=== PATIENT | male | born 1960 | race Caucasian/White ===

== ENCOUNTER 2021-08-15 10:12 | Observation (INO) | payer BC ==
--- NOTE | 2021-08-15 10:37 | ED ---
General Adult HPI - General Chief complaint: Neuro Symptoms/Deficit Stated complaint: Visual changes Time Seen by Provider: 08/15/21 10:21 Source: patient, RN notes reviewed Mode of arrival: ambulatory Limitations: no limitations - History of Present Illness Initial comments: Patient is a pleasant 61-year-old male presenting to the emergency department with concerns for visual changes. Onset of symptoms was around 45 minutes prior to arrival. Symptoms lasted around 15 minutes and then resolved. Patient remained symptom-free at this time. Patient did have blurry vision on the left visual field. Patient states this affected both eyes, more the left side. Patient did try shutting his eyes independently. Patient states there was a large blur on the left peripheral, less than one quarter of his vision. No eye pain. Patient did have some paresthesias of his left hand that have resolved. No hand or arm weakness. No confusion or speech problems. Patient does have history of TIA approximately 10 years ago with different symptoms. - Related Data Home Medications Medication Instructions Recorded Confirmed Enalapril [Vasotec] 10 mg PO HS 05/17/14 08/15/21 Metoprolol Tartrate [Lopressor] 37.5 mg PO BID 05/17/14 08/15/21 Rosuvastatin [Crestor] 10 mg PO HS 05/17/14 08/15/21 Ezetimibe [Zetia] 10 mg PO HS 08/15/21 08/15/21 Multivitamins, Thera [Multivitamin 1 tab PO HS 08/15/21 08/15/21 (formulary)] Allergies Allergy/AdvReac Type Severity Reaction Status Date / Time No Known Allergies Allergy Verified 08/15/21 11:31 Review of Systems ROS Statement: Those systems with pertinent positive or pertinent negative responses have been documented in the HPI. ROS Other: All systems not noted in ROS Statement are negative. Constitutional: Denies: fever Eyes: Reports: as per HPI, vision change. Denies: eye pain ENT: Denies: ear pain Respiratory: Denies: cough Cardiovascular: Denies: chest pain Endocrine: Denies: fatigue Gastrointestinal: Denies: abdominal pain Genitourinary: Denies: dysuria Musculoskeletal: Denies: back pain Skin: Denies: rash Neurological: Reports: as per HPI, paresthesias. Denies: weakness Past Medical History Past Medical History: CVA/TIA, Hyperlipidemia, Hypertension History of Any Multi-Drug Resistant Organisms: None Reported Additional Past Surgical History / Comment(s): COLONOSCOPY, ELIGIO Past Anesthesia/Blood Transfusion Reactions: No Reported Reaction Past Psychological History: No Psychological Hx Reported Smoking Status: Never smoker Past Alcohol Use History: Occasional Past Drug Use History: None Reported General Exam Limitations: no limitations General appearance: alert, in no apparent distress Head exam: Present: normocephalic Eye exam: Present: normal appearance, PERRL, EOMI, other (Funduscopic exam within normal limits bilaterally, nondilated exam). Absent: nystagmus Expanded Eyelids: Normal Inspection: Bilateral Pupils: Regular, Round: Bilateral Sclera/Conjunctival: Normal Inspection: Bilateral ENT exam: Present: normal oropharynx Neck exam: Present: normal inspection Respiratory exam: Present: normal lung sounds bilaterally Cardiovascular Exam: Present: regular rate, normal rhythm GI/Abdominal exam: Present: soft. Absent: tenderness Extremities exam: Present: normal inspection Neurological exam: Present: alert, oriented X3, CN II-XII intact. Absent: motor sensory deficit Expanded Neurological exam: Present: protecting the airway Patient oriented to: Present: person, place, time Speech: Present: fluid speech Cranial nerves: EOM's Intact: Normal, Facial Sensation: Normal Sensory exam: Upper Extremity Light Touch: Normal, Lower Extremity Light Touch: Normal Motor strength exam: RUE: 5, LUE: 5, RLE: 5, LLE: 5 Eye Response: (4) open spontaneously Motor Response: (6) obeys commands Verbal Response: (5) oriented Psychiatric exam: Present: normal affect, normal mood Skin exam: Present: normal color Course Vital Signs 08/15/21 08/15/21 08/15/21 10:14 10:30 11:00 Temperature 98 F Pulse Rate 65 61 59 L Respiratory 18 18 18 Rate Blood Pressure 167/93 137/92 135/88 O2 Sat by Pulse 100 98 95 Oximetry 08/15/21 08/15/21 11:15 11:30 Temperature Pulse Rate 56 L 55 L Respiratory 18 18 Rate Blood Pressure 125/79 117/75 O2 Sat by Pulse 97 97 Oximetry - Reevaluation(s) Reevaluation #1: 08/15/21 10:36 Ophthalmology has been paged 08/15/21 10:44 Case was discussed with Dr. Faustin who agrees with neurological workup. He would like to follow-up with the patient within 1 week in the office. Patient updated. EKG Findings - EKG Comments: EKG Findings:: Sinus bradycardia with rate of 58. SC 158. QRS 84. QT 418. QTC 410. Normal axis. Normal QRS. No acute ST change. Medical Decision Making - Medical Decision Making Patient reevaluated and remained symptom-free. Patient updated on results and plan. Case was discussed with Dr. De Leon, who will admit his patient with neurology evaluation. Patient was specifically notified of need for follow-up with ophthalmology within the week. - Lab Data Result diagrams: 08/15/21 10:50 08/15/21 10:50 Lab Results 08/15/21 08/15/21 08/15/21 Range/Units 10:50 10:50 10:50 WBC 7.1 (3.8-10.6) k/uL RBC 5.14 (4.30-5.90) m/uL Hgb 17.1 (13.0-17.5) gm/dL Hct 50.1 (39.0-53.0) % MCV 97.5 (80.0-100.0) fL MCH 33.2 (25.0-35.0) pg MCHC 34.1 (31.0-37.0) g/dL RDW 13.3 (11.5-15.5) % Plt Count 189 (150-450) k/uL MPV 10.8 Neutrophils % 59 % Lymphocytes % 27 % Monocytes % 9 % Eosinophils % 1 % Basophils % 1 % Neutrophils # 4.1 (1.3-7.7) k/uL Lymphocytes # 1.9 (1.0-4.8) k/uL Monocytes # 0.7 (0-1.0) k/uL Eosinophils # 0.1 (0-0.7) k/uL Basophils # 0.0 (0-0.2) k/uL PT 10.9 (9.0-12.0) sec INR 1.0 (<1.2) APTT 23.7 (22.0-30.0) sec Sodium 138 (137-145) mmol/L Potassium 4.5 (3.5-5.1) mmol/L Chloride 102 (98-107) mmol/L Carbon Dioxide 26 (22-30) mmol/L Anion Gap 10 mmol/L BUN 20 (9-20) mg/dL Creatinine 0.89 (0.66-1.25) mg/dL Est GFR (CKD-EPI)AfAm >90 (>60 ml/min/1.73 sqM) Est GFR (CKD-EPI)NonAf >90 (>60 ml/min/1.73 sqM) Glucose 94 (74-99) mg/dL Calcium 9.7 (8.4-10.2) mg/dL Total Bilirubin 1.0 (0.2-1.3) mg/dL AST 39 (17-59) U/L ALT 48 (4-49) U/L Alkaline Phosphatase 55 (38-126) U/L Troponin I (0.000-0.034) ng/mL Total Protein 7.2 (6.3-8.2) g/dL Albumin 4.4 (3.5-5.0) g/dL 08/15/21 Range/Units 10:50 WBC (3.8-10.6) k/uL RBC (4.30-5.90) m/uL Hgb (13.0-17.5) gm/dL Hct (39.0-53.0) % MCV (80.0-100.0) fL MCH (25.0-35.0) pg MCHC (31.0-37.0) g/dL RDW (11.5-15.5) % Plt Count (150-450) k/uL MPV Neutrophils % % Lymphocytes % % Monocytes % % Eosinophils % % Basophils % % Neutrophils # (1.3-7.7) k/uL Lymphocytes # (1.0-4.8) k/uL Monocytes # (0-1.0) k/uL Eosinophils # (0-0.7) k/uL Basophils # (0-0.2) k/uL PT (9.0-12.0) sec INR (<1.2) APTT (22.0-30.0) sec Sodium (137-145) mmol/L Potassium (3.5-5.1) mmol/L Chloride (98-107) mmol/L Carbon Dioxide (22-30) mmol/L Anion Gap mmol/L BUN (9-20) mg/dL Creatinine (0.66-1.25) mg/dL Est GFR (CKD-EPI)AfAm (>60 ml/min/1.73 sqM) Est GFR (CKD-EPI)NonAf (>60 ml/min/1.73 sqM) Glucose (74-99) mg/dL Calcium (8.4-10.2) mg/dL Total Bilirubin (0.2-1.3) mg/dL AST (17-59) U/L ALT (4-49) U/L Alkaline Phosphatase (38-126) U/L Troponin I <0.012 (0.000-0.034) ng/mL Total Protein (6.3-8.2) g/dL Albumin (3.5-5.0) g/dL - Radiology Data Radiology results: report reviewed (Computed tomography scan and CTA revealed no acute process) Disposition Clinical Impression: Transient cerebral ischemia Disposition: ADMITTED IP TO THIS HOSP Is patient prescribed a controlled substance at d/c from ED?: No Referrals: Adeel De Leon MD [Primary Care Provider] - 1-2 days Keaton Faustin MD [STAFF PHYSICIAN] - 1-2 days Decision Time: 12:02
--- NOTE | 2021-08-15 11:03 | CT ---
EXAMINATION TYPE: CT brain wo con DATE OF EXAM: 08/15/2021 COMPARISON: 03/28/2011 HISTORY: Left hand weak, visual changes CT DLP: 1114.[address] of the brain was performed. The ventricles, basal cisterns and sulci overlying the cerebral convexities demonstrate mild enlargem ent. There is no evidence for intracranial hemorrhage or sulcal effacement. There is decreased attenuation about the periventricular white matter and deep white matter of both c erebral hemispheres, compatible with chronic small vessel ischemia. Differential diagnosis does inclu de demyelination. No mass effects are seen.No midline shift. Osseous calvarium is intact. If symptoms persist consider MRI. IMPRESSION: 1. Age related atrophic and chronic small vessel ischemic change without acute intracranial process s een at this time.
[2021-08-15 11:16] LABS: Prothrombin Time 10.9 sec (9.0-12.0)
[2021-08-15 11:17] LABS: ALT 48 U/L (4-49); AST 39 U/L (17-59); African American GFR (CKD) >90 (>60 ml/min/1.73 sqM); Albumin 4.4 g/dL (3.5-5.0); Alkaline Phosphatase 55 U/L (38-126); Anion Gap 10 mmol/L; Blood Urea Nitrogen 20 mg/dL (9-20); Calcium 9.7 mg/dL (8.4-10.2); Carbon Dioxide 26 mmol/L (22-30); Chloride 102 mmol/L (98-107); Glucose 94 mg/dL (74-99); Non-African American GFR(CKD) >90 (>60 ml/min/1.73 sqM); Partial Thromboplastin Time 23.7 sec (22.0-30.0); Potassium 4.5 mmol/L (3.5-5.1); Sodium 138 mmol/L (137-145); Total Protein 7.2 g/dL (6.3-8.2)
--- NOTE | 2021-08-15 11:20 | CT ---
EXAMINATION TYPE: CT angio head neck DATE OF EXAM: 08/15/2021 COMPARISON: None HISTORY: left arm weakness and visual changes CT DLP: 468.1 mGycm CONTRAST: Performed with IV Contrast, patient injected with 100 mL of Isovue 370. Combination Contrast CTA cervical carotids and [place] CTA cervical carotids with 3-D recons truction Contrast CTA of the cervical carotids was performed 3-D reconstruction imaging obtained at a separate workstation. Right carotid system: Mild plaque is seen of the right common carotid artery. There is mild plaque a lso noted at the carotid bulb and proximal ICA. No significant diameter reduction. ECA is patent. Right vertebral artery appears unremarkable. Left carotid system: Mild plaque is seen of the left common carotid artery. There is mild plaque als o noted at the carotid bulb and proximal ICA. No significant diameter reduction. ECA is patent. Lef t vertebral artery appears unremarkable. IMPRESSION: 1. No significant diameter reduction to account for the patient's symptoms. CTA [place] with 3-D reconstruction Contrast CTA of the [place] was performed 3-D reconstruction imaging obtained at a separate workstation. Vertebrobasilar system as well as intracranial portions of the internal carotid arteries and their ma jaime tributaries are patent. I do not see evidence for sizable aneurysm or vascular malformation. Pl ease note MRI provides greater sensitivity and specificity. Visualized brain appears grossly unremar kable. IMPRESSION: 1. No significant abnormality. NASCET criteria was used in interpretation of this exam?
[2021-08-15 11:22] LABS: Basophils % (A) 1 %; Eosinophils # (A) 0.1 k/uL (0-0.7); Eosinophils % (A) 1 %; HCT 50.1 % (39.0-53.0); HGB 17.1 gm/dL (13.0-17.5); Lymphocytes # (A) 1.9 k/uL (1.0-4.8); Lymphocytes % (A) 27 %; MCH 33.2 pg (25.0-35.0); MCHC 34.1 g/dL (31.0-37.0); MCV 97.5 fL (80.0-100.0); Mean Platelet Volume 10.8; Monocytes # (A) 0.7 k/uL (0-1.0); Monocytes % (A) 9 %; Neutrophils # (A) 4.1 k/uL (1.3-7.7); Neutrophils % (A) 59 %; Platelet Count 189 k/uL (150-450); RBC 5.14 m/uL (4.30-5.90); RDW 13.3 % (11.5-15.5); WBC 7.1 k/uL (3.8-10.6)
--- NOTE | 2021-08-15 11:43 | XR ---
EXAMINATION TYPE: XR chest 2V DATE OF EXAM: 08/15/2021 COMPARISON: 05/09/2014 INDICATION: Distorted vision left hand numbness TECHNIQUE: Frontal and lateral views of the chest are obtained. FINDINGS: The heart size is normal. The pulmonary vasculature is normal. The lungs are clear. IMPRESSION: 1. No acute pulmonary process.
[2021-08-15] MEDS ORDERED: ASPIRIN 325 MG TAB PO STA (12:02)
[2021-08-15] MEDS: SODIUM CHLORIDE 0.9% 1,000 ML IV SCH (12:35)
[2021-08-15] MEDS ORDERED: CLOPIDOGREL 75 MG TAB PO STA (13:30)
[2021-08-15] MEDS ORDERED: ATORVASTATIN 80 MG TAB PO STA (13:33)
--- NOTE | 2021-08-15 14:54 | P.CNNES ---
History of Present Illness Consult date: 08/15/21 Requesting physician: Wilfredo Rapp Reason for Consult: visual changes. Evaluate for TIA History of Present Illness: This is a 61-year-old gentleman with medical history of TIA (about 10-11years ago), hypertension, dyslipidemia who presented emergency department on 08/15/2021 for visual changes. Patient presents to our facility today around 10:12 AM. He states that his symptoms began 45 minutes prior to arrival. Luh ent stated that the symptoms began around 9:15 AM today while he was at work and that he stated that he couldn't see out of the left side of her peripheral vision as well as that he felt like there was a flash of light that started in the right side and was moving across the left side of the eye until disappeared. He also had the left hand numbness. He said prior to episode that he was doing fairly well. His symptoms lasted for 45 minutes. He denies any weakness so she with this, any difficulty getting his words out, and he did complete swallowing, any focal weakness. He denied any headache associated with this. He said his symptoms resolved after that. He denies being on any antiplatelets or anticoagulation. He said that he was on aspirin in the past but his aluminum siding mechanic (Dr. Camp) discontinued it about 5 years ago and was told he does not need it any longer. Patient is on home medication of Crestor 10 mg daily at bedtime, metoprolol 10 mg daily at bedtime, enalapril 10 mg daily at bedtime and multivitamins. He said that he had an episode of transient ischemic attack about 10-11 years ago in which the he had an episode of left arm numbness and felt his Lipitor funny and happened in March. He had an event monitor for 30 days past and his aluminum siding mechanic and thought he was told that he has ?A. fib. Upon asking him whether his aluminum siding mechanic wanted him to be started on anticoagulant or antiplatelet stated no. Patient denies tobacco use or any illicit drug use. He socially drinks alcohol. Some other workup in the hospital consisted of: Initial vital signs are initial blood pressure 167/93, heart rate of 65, respiratory of 18, temperature of 98.0 Fahrenheit oral and pulse ox of 100% room air CBC with differential is unremarkable Chemistry panel the basic is unremarkable. Initial serum glucose is 94, calcium is 9.7, AST of 39 ALT of 48. PT of 10.9, INR 1.0, PTT of 23.7. CT of the head is reported as age-related atrophic and chronic small vessel ischemic change without acute intracranial process seen at this time. CT angiography of the head and neck is reported as negative. EKG is reported as sinus bradycardia with premature atrial complexes. Otherwise normal EKG. In the ED the physician felt the patient's symptoms resolved. The ED physicians spoke with the civilian technician Dr. Faustin and the patient to follow-up with up with ophthalmology within a week. Review of Systems Review of system: The 12 point system was reviewed and apparent positive and negative per HPI. Past Medical History Past Medical History: CVA/TIA, Hyperlipidemia, Hypertension History of Any Multi-Drug Resistant Organisms: None Reported Additional Past Surgical History / Comment(s): COLONOSCOPY, ELIGIO Past Anesthesia/Blood Transfusion Reactions: No Reported Reaction Past Psychological History: No Psychological Hx Reported Smoking Status: Never smoker Past Alcohol Use History: Occasional Past Drug Use History: None Reported - Past Family History Father Family Medical History: Cancer Additional Family Medical History / Comment(s): Prostate cancer, several back surgeries. Mother Additional Family Medical History / Comment(s): Twisted bowel Medications and Allergies Home Medications Medication Instructions Recorded Confirmed Type Enalapril [Vasotec] 10 mg PO HS 05/17/14 08/15/21 History Metoprolol Tartrate [Lopressor] 37.5 mg PO BID 05/17/14 08/15/21 History Rosuvastatin [Crestor] 10 mg PO HS 05/17/14 08/15/21 History Ezetimibe [Zetia] 10 mg PO HS 08/15/21 08/15/21 History Multivitamins, Thera [Multivitamin 1 tab PO HS 08/15/21 08/15/21 History (formulary)] Allergies Allergy/AdvReac Type Severity Reaction Status Date / Time No Known Allergies Allergy Verified 08/15/21 11:31 Physical Examination - Vital Signs Vital Signs: Vital Signs Temp Pulse Resp BP Pulse Ox 08/15/21 12:37 66 18 120/70 98 08/15/21 11:30 55 L 18 117/75 97 08/15/21 11:15 56 L 18 125/79 97 08/15/21 11:00 59 L 18 135/88 95 08/15/21 10:30 61 18 137/92 98 08/15/21 10:14 98 F 65 18 167/93 100 Intake and Output 08/14/21 08/15/21 08/15/21 22:59 06:59 14:59 Other: Weight 87.09 kg GENERAL: The patient is lying in bed and is not in acute distress. CHEST: The heart rate is regular rate rhythm. No murmurs to auscultation. No carotid bruit bilaterally. LUNG: Clear to auscultation bilaterally no wheezing noted throughout. Not lab ored breathing. ABDOMEN/GI: Bowel sounds present in all 4 quadrants. No tenderness to palpation throughout. NEUROLOGICAL: Higher mental function: The patient is awake, alert, oriented to self, place and time. Patient is following commands. No aphasia and no neglect. Cranial nerves: The pupils are round, equal and reactive to light and accommodation. Visual jarrell are full to confrontation throughout. Extraocular movement is intact no nystagmus is noted. Facial sensation is normal to touch throughout. The facial strength is normal throughout. Hearing is normal bilaterally to hand rub. Tongue is midline and moved [id number] without any difficulty. No dysarthria is noted. Shoulder shrug is normal bilaterally. Motor: Gait is normal with normal arm swings. The strength is 5 over 5 throughout. Normal tone and bulk. Cerebellum: Normal finger to nose heel to ackerman bilaterally. Sensation: Sensation is normal to touch throughout. Reflexes (right/left): 2+ throughout. Plantars are downgoing bilaterally. NIH stroke scale: 0 Results - Laboratory Findings CBC and BMP: 08/15/21 10:50 08/15/21 10:50 Assessment and Plan Assessment: Acute transient ischemic stroke (episode of left arm numbness, left peripheral visual defect lasting for 45 minutes). History of TIA about 10 years ago Hypertension Dyslipidemia Plan: * In the ED the patient was given aspirin 325mg once. I loaded the patient with Plavix 75mg once. I started the patient on aspirin 81 mg daily as well as Plavix 75 mg daily. The patient to be on dual antiplatelets and after 21 days, then after that to continue aspirin indefinitely (and to stop Plavix) from neurological perspective. * Ordered MRI of the brain without urgently * 2-D echo (notified tech to perform with bubble study), lipid panel are ordered I ordered TSH and hemoglobin A1c. * Continue neuro checks * Patient is on cardiac monitoring. I recommend patient to have a loop recorder placed as an outpatient. Patient is to follow-up with his aluminum siding mechanic (Dr. Camp) as outpatient. * PT, OT and SALES AUDIT CLERK are consulted. * I spoke with cardiology nurse practioner regarding ?Afib patient stated: Per nurse practioner she reviewed record and stated patient has no A-fib. * DVT prophylaxis: Place on subq heparin 5000U every 12 hours. * Will defer the rest of medical management to the primary team. * Upon discharge the patient is to follow-up with neurologist within 1-2 weeks. The plan is discussed with the patient and his nurse. Thank you for the consult. Dr. Payne is starting neurology service tomorrow AM. Sam Ladd MD Neuro-Hospitalist Time with Patient: Greater than 30
--- NOTE | 2021-08-15 15:31 | P.HPIM ---
History of Present Illness H&P Date: 08/15/21 Yoshi Holm, is a 61 year old male who presented to [facility] ER with a chief complaint of blurry vision on the left side of his visual field affecting both eyes but mostly on the left eye. Symptoms lasted 15 minutes and resolved spontaneously, patient also had numbness affecting the left hand. He was evaluated in ER vital examination on presentation revealed a temperature of 98, pulse 65 respiration 18 , blood pressure of 167/93 and pulse ox of 100% on RA. Laboratory data were within normal limits testing in ER revealed normal EKG, normal CT angiogram of the head and neck, normal non contrast CT of the brain and normal CXR. He was admitted to telemetry floor, neurology consultation was requested. Patient has a knwon history of HTN, hyperlipidemia, and had one previous episode of TIA 10 years ago, at that time he had numbness affecting the left upper extremity. he never smoked. Past Medical History Past Medical History: CVA/TIA, Hyperlipidemia, Hypertension Additional Past Medical History / Comment(s): TIA, nephrolithiasis-passed stone on his own. History of Any Multi-Drug Resistant Organisms: None Reported Past Surgical History: Heart Catheterization Additional Past Surgical History / Comment(s): COLONOSCOPY, ELIGIO Past Anesthesia/Blood Transfusion Reactions: No Reported Reaction Past Psychological History: No Psychological Hx Reported Smoking Status: Never smoker Past Alcohol Use History: Occasional Past Drug Use History: None Reported - Past Family History Father Family Medical History: Cancer Additional Family Medical History / Comment(s): Prostate cancer, several back surgeries. Mother Additional Family Medical History / Comment(s): Twisted bowel Medications and Allergies Home Medications Medication Instructions Recorded Confirmed Type Enalapril [Vasotec] 10 mg PO HS 05/17/14 08/15/21 History Metoprolol Tartrate [Lopressor] 37.5 mg PO BID 05/17/14 08/15/21 History Rosuvastatin [Crestor] 10 mg PO HS 05/17/14 08/15/21 History Ezetimibe [Zetia] 10 mg PO HS 08/15/21 08/15/21 History Multivitamins, Thera [Multivitamin 1 tab PO HS 08/15/21 08/15/21 History (formulary)] Allergies Allergy/AdvReac Type Severity Reaction Status Date / Time No Known Allergies Allergy Verified 08/15/21 11:31 Physical Exam Vitals: Vital Signs Temp Pulse Pulse Resp BP BP Pulse Ox 08/15/21 13:01 97.8 F 59 L 18 158/80 100 08/15/21 12:37 66 18 120/70 98 08/15/21 11:30 55 L 18 117/75 97 08/15/21 11:15 56 L 18 125/79 97 08/15/21 11:00 59 L 18 135/88 95 08/15/21 10:30 61 18 137/92 98 08/15/21 10:14 98 F 65 18 167/93 100 Intake and Output 08/14/21 08/15/21 08/15/21 22:59 06:59 14:59 Other: Weight 87.09 kg In general patient is alert and oriented x 3 in no distress HEENT head normocephalic and atraumatic Neck is supple no JVD no goiter no lymphadenopathy no carotid bruit Chest examination reveals a few scattered crackles bilaterally no wheezing Cardiac exam reveals regular heart sounds S1 and S2 no gallops no murmurs Abdomen is soft nontender no organomegaly with normal bowel sounds Extremity exam reveals no edema no cyanosis or clubbing Neurological examination reveals no gross focal deficits Results CBC & Chem 7: 08/15/21 10:50 08/15/21 10:50 Thrombosis Risk Factor Assmnt - Choose All That Apply Any of the Below Risk Factors Present?: Yes Each Factor Represents 1 point: Age 41-60 years, Obesity (BMI >25) Other Risk Factors: No Other congenital or acquired thrombophilia - If yes, enter type in comment: No Thrombosis Risk Factor Assessment Total Risk Factor Score: 2 Thrombosis Risk Factor Assessment Level: Low Risk Assessment and Plan Plan: Episode of blurry vision lasting 15 minutes, affecting left side of visual field bilaterally, likely related to TIA Underlying history of Hypertention Underlying history of hyperlipidemia Previous histry of TIA 10 years ago at this time patient is admitted to telemetry Neurology consultation requested, patient started on Aspirin and Plavix, MRI of the brain ordered Echocardiogram requested and cardiology consultation requested. Home medications reviewed and reordered. For DVT prophylaxis patient started on SQ Heparin, GI prophylaxis Protonix will follow closely
--- NOTE | 2021-08-15 16:50 | MR ---
MR brain without contrast HISTORY: Stroke, left eye visual field defect Multiplanar multisequence imaging obtained through the brain, correlation to CT brain 08/15/2021 There is no restricted diffusion. There are scattered hyperintensities in the periventricular, perica llosal, subcortical white matter on inversion recovery T2-weighted sequences, approximately 10 lesion s are present. There is no hemorrhage or hydrocephalus. Cerebellopontine angles, corpus callosum, pit uitary, cervical measuring junction are normal. Cortical atrophy is present, prominent cerebral spina l fluid noted over the convexity of the hemispheres. Orbits show symmetric appearance. Paranasal sinu ses are well aerated. IMPRESSION: Nonspecific white matter demyelination, cortical atrophy
[2021-08-15] MEDS: HEPARIN SODIUM,PORCINE/PF 5,000 UNIT/0.5 ML SYRINGE SQ SCH (20:07)
[2021-08-15] MEDS: METOPROLOL TARTRATE 25 MG TAB PO SCH (20:07)
[2021-08-15] MEDS ORDERED: lisinopriL 10 MG TAB PO SCH (21:00)
[2021-08-15] MEDS ORDERED: MULTIVITAMINS, THERA 1 EACH TAB PO SCH (21:00)
[2021-08-15] MEDS ORDERED: ATORVASTATIN 40 MG TAB PO SCH (21:00)
[2021-08-15] MEDS ORDERED: EZETIMIBE 10 MG TAB PO SCH (21:00)
[2021-08-16] MEDS: SODIUM CHLORIDE 0.9% 1,000 ML IV SCH ×2 (02:30→08:43)
[2021-08-16] MEDS ORDERED: PANTOPRAZOLE 40 MG TABLET PO SCH (07:30)
[2021-08-16 07:50] VITALS: BP 111/69; PULSE 56; RESP 17; TEMP 97.6
[2021-08-16] MEDS: METOPROLOL TARTRATE 25 MG TAB PO SCH (08:53)
[2021-08-16] MEDS: HEPARIN SODIUM,PORCINE/PF 5,000 UNIT/0.5 ML SYRINGE SQ SCH (08:54)
[2021-08-16] MEDS ORDERED: ASPIRIN 325 MG TAB PO SCH (09:00)
[2021-08-16] MEDS ORDERED: CLOPIDOGREL 75 MG TAB PO SCH (09:00)
[2021-08-16] MEDS ORDERED: ASPIRIN 81 MG PO SCH (09:00)
[2021-08-16 09:38] LABS: Chol/HDL Ratio 3.54 Ratio; LDL Cholesterol,Calculated 81.2 mg/dL (0.0-131.0); VLDL Calculation 19.28 mg/dL (5.00-40.00)
--- NOTE | 2021-08-16 09:59 | P.CRDCN ---
History of Present Illness Consult date: 08/16/21 Chief complaint: Blurry vision History of present illness: The patient is a pleasant 61-year-old gentleman who I follow in the office regularly with a past medical history significant for hypertension and dyslipidemia and history of SVT presented to the emergency department complaining of blurry vision mainly on the left side. The patient was at work when he suddenly developed episode of blurred vision. It was associated with left hand numbness. No weakness affecting the upper or lower extremities. No dizziness or lightheadedness and no presyncope or syncope. The symptoms lasted less than 24 hours. The patient was seen by the neurology service and he was diagnosed with TIA. Currently he is asymptomatic and the symptoms resolved completely. No reported symptoms of chest pain or chest discomfort or shortness of breath. The EKG showed sinus rhythm without any significant ST or T-wave abnormalities. The chest x-ray did not show any acute abnormalities. The blood pressure has been under good control. He underwent an echocardiogram which currently still pending. No prior diagnosis of atrial fibrillation but he does have history of SVT. No history of stroke from before. The patient was evaluated by the neurology service and cardiac etiology for his TIA to be ruled out including cardiac arrhythmia and also patent garcia ovale. Past Medical History Past Medical History: CVA/TIA, Hyperlipidemia, Hypertension Additional Past Medical History / Comment(s): TIA, nephrolithiasis-passed stone on his own. History of Any Multi-Drug Resistant Organisms: None Reported Past Surgical History: Heart Catheterization Additional Past Surgical History / Comment(s): COLONOSCOPY, ELIGIO Past Anesthesia/Blood Transfusion Reactions: No Reported Reaction Past Psychological History: No Psychological Hx Reported Smoking Status: Never smoker Past Alcohol Use History: Occasional Past Drug Use History: None Reported - Past Family History Father Family Medical History: Cancer Additional Family Medical History / Comment(s): Prostate cancer, several back surgeries. Mother Additional Family Medical History / Comment(s): Twisted bowel Medications and Allergies Home Medications Medication Instructions Recorded Confirmed Type Enalapril [Vasotec] 10 mg PO HS 05/17/14 08/15/21 History Metoprolol Tartrate [Lopressor] 37.5 mg PO BID 05/17/14 08/15/21 History Rosuvastatin [Crestor] 10 mg PO HS 05/17/14 08/15/21 History Ezetimibe [Zetia] 10 mg PO HS 08/15/21 08/15/21 History Multivitamins, Thera [Multivitamin 1 tab PO HS 08/15/21 08/15/21 History (formulary)] Allergies Allergy/AdvReac Type Severity Reaction Status Date / Time No Known Allergies Allergy Verified 08/15/21 11:31 Physical Exam Vitals: Vital Signs Temp Pulse Pulse Resp BP BP Pulse Ox 08/16/21 07:00 97.6 F 56 L 17 111/69 97 08/16/21 02:08 97.8 F 62 16 99/59 97 08/15/21 20:00 18 08/15/21 19:39 97.5 F L 68 16 136/79 94 L 08/15/21 15:00 97.4 F L 59 L 18 133/79 99 08/15/21 13:01 97.8 F 59 L 18 158/80 100 08/15/21 12:37 66 18 120/70 98 08/15/21 11:30 55 L 18 117/75 97 08/15/21 11:15 56 L 18 125/79 97 08/15/21 11:00 59 L 18 135/88 95 08/15/21 10:30 61 18 137/92 98 08/15/21 10:14 98 F 65 18 167/93 100 Intake and Output 08/15/21 08/16/21 08/16/21 22:59 06:59 14:59 Intake Total 118 Balance 118 Intake: Oral 118 Other: # Voids 2 3 - Constitutional General appearance: no acute distress - Respiratory Respiratory: bilateral: CTA - Cardiovascular Rhythm: regular Heart sounds: normal: S1, S2 Results 08/15/21 10:50 08/15/21 10:50 Cardiac Enzymes 08/15/21 08/15/21 Range/Units 10:50 10:50 AST 39 (17-59) U/L Troponin I <0.012 (0.000-0.034) ng/mL Coagulation 08/15/21 Range/Units 10:50 PT 10.9 (9.0-12.0) sec APTT 23.7 (22.0-30.0) sec Lipids 08/16/21 Range/Units 06:30 Triglycerides 96.40 (0.00-149.00) mg/dL Cholesterol 140.00 (0.00-200.00) mg/dL HDL Cholesterol 39.50 L (40.00-60.00) mg/dL Cholesterol/HDL Ratio 3.54 Ratio CBC 08/15/21 Range/Units 10:50 WBC 7.1 (3.8-10.6) k/uL RBC 5.14 (4.30-5.90) m/uL Hgb 17.1 (13.0-17.5) gm/dL Hct 50.1 (39.0-53.0) % Plt Count 189 (150-450) k/uL Comprehensive Metabolic Panel 08/15/21 Range/Units 10:50 Sodium 138 (137-145) mmol/L Potassium 4.5 (3.5-5.1) mmol/L Chloride 102 (98-107) mmol/L Carbon Dioxide 26 (22-30) mmol/L BUN 20 (9-20) mg/dL Creatinine 0.89 (0.66-1.25) mg/dL Glucose 94 (74-99) mg/dL Calcium 9.7 (8.4-10.2) mg/dL AST 39 (17-59) U/L ALT 48 (4-49) U/L Alkaline Phosphatase 55 (38-126) U/L Total Protein 7.2 (6.3-8.2) g/dL Albumin 4.4 (3.5-5.0) g/dL Current Medications Generic Name Dose Route Start Last Admin Trade Name Freq PRN Reason Stop Dose Admin Aspirin 81 mg 08/16/21 09:00 08/16/21 08:54 Aspirin 81 Mg PO 81 mg DAILY ELLIS Administration Atorvastatin Calcium 40 mg 08/15/21 21:00 08/15/21 20:06 Atorvastatin 40 Mg Tab PO 40 mg HS ELLIS Administration Clopidogrel Bisulfate 75 mg 08/16/21 09:00 08/16/21 08:53 Clopidogrel 75 Mg Tab PO 75 mg DAILY ELLIS Administration Ezetimibe 10 mg 08/15/21 21:00 08/15/21 20:06 Ezetimibe 10 Mg Tab PO 10 mg HS ELLIS Administration Heparin Sodium (Porcine) 5,000 unit 08/15/21 21:00 08/16/21 08:54 Heparin Sodium,Porcine/Pf 5,000 Unit/0.5 Ml Syringe SQ 5,000 unit Q12HR ELLIS Administration Sodium Chloride 1,000 mls @ 100 mls/hr 08/15/21 12:15 08/16/21 08:43 Saline 0.9% IV Not Given .Q10H ELLIS Lisinopril 10 mg 08/15/21 21:00 08/15/21 20:07 Lisinopril 10 Mg Tab PO 10 mg HS ELLIS Administration Metoprolol Tartrate 37.5 mg 08/15/21 21:00 08/16/21 08:53 Metoprolol Tartrate 25 Mg Tab PO 37.5 mg BID ELLIS Administration Multivitamins 1 each 08/15/21 21:00 08/15/21 20:08 Multivitamins, Thera 1 Each Tab PO 1 each HS ELLIS Administration Pantoprazole Sodium 40 mg 08/16/21 07:30 08/16/21 08:53 Pantoprazole 40 Mg Tablet PO 40 mg [id number] ELLIS Administration Intake and Output 08/15/21 08/16/21 08/16/21 22:59 06:59 14:59 Intake Total 118 Balance 118 Intake: Oral 118 Other: # Voids 2 3 08/15/21 10:50 08/15/21 10:50 Assessment and Plan Assessment: #1 TIA presented as blurred vision and left hand numbness #2 hypertension #3 dyslipidemia #4 SVT Plan #1 rule out cardiac etiology for the TIA giving the patient relative young age #2 first patent foramen ovale to be ruled out. He will benefit from ELIGIO as an outpatient #3 if patent foramen ovale was not the scenario he would benefit from loop recorder to rule out atrial fibrillation #4 continue dual antiplatelet therapy #5 the patient can be discharged home
--- NOTE | 2021-08-16 12:59 | P.DS ---
Providers Date of admission: 08/15/21 12:05 Expected date of discharge: 08/16/21 Attending physician: Adeel De Leon Consults: 08/15/21 12:03 Consult Physician Urgent Consulting Provider: Sam Ladd Consult Reason/Comments: Visual changes, evaluated for TIA Do you want consulting provider notified?: Yes 08/15/21 14:57 Consult Physician Routine Consulting Provider: Chato Camp Consult Reason/Comments: TIA Do you want consulting provider notified?: Yes Primary care physician: Adeel De Leon [facility] Course: Diagnoses on discharge: Episode of blurry vision lasting 15 minutes, affecting left side of visual field bilaterally, likely related to TIA Underlying history of Hypertention Underlying history of hyperlipidemia Previous histry of TIA 10 years ago Hospital course: Yoshi Holm, is a 61 year old male who presented to [facility] ER with a chief complaint of blurry vision on the left side of his visual field affecting both eyes but mostly on the left eye. Symptoms lasted 15 minutes and resolved spontaneously, patient also had numbness affecting the left hand. He was evaluated in ER vital examination on presentation revealed a temperature of 98, pulse 65 respiration 18 , blood pressure of 167/93 and pulse ox of 100% on RA. Laboratory data were within normal limits testing in ER revealed normal EKG, normal CT angiogram of the head and neck, normal non contrast CT of the brain and normal CXR. He was admitted to telemetry floor, neurology consultation was requested. Patient has a knwon history of HTN, hyperlipidemia, and had one previous episode of TIA 10 years ago, at that time he had numbness affecting the left upper extremity. he never smoked. On 08/16/2021 patient was seen and examined on the telemetry floor he is alert and oriented 3 in no apparent distress he denies any symptoms at this time there is no new episodes of blurry vision or numbness since admission, MRI report reviewed, input from neurology and cardiology reviewed, at this time patient will be discharged home, he was given prescriptions for Plavix 75 mg by mouth daily and aspirin 81 mg by mouth daily , otherwise he will continue his medications as prior to admission , he will follow-up with cardiology in the next few days patient will need a ELIGIO as outpatient he may also need a loop recorder placement. He will follow in our office in the next 3-5 days. Patient was instructed to return to emergency room if having any new neurological deficit. Plan - Discharge Summary Discharge Rx Participant: No New Discharge Prescriptions: New Aspirin 81 mg PO DAILY tab Clopidogrel [Plavix] 75 mg PO DAILY tab Continue Rosuvastatin [Crestor] 10 mg PO HS Enalapril [Vasotec] 10 mg PO HS Metoprolol Tartrate [Lopressor] 37.5 mg PO BID Multivitamins, Thera [Multivitamin (formulary)] 1 tab PO HS Ezetimibe [Zetia] 10 mg PO HS Discharge Medication List Enalapril [Vasotec] 10 mg PO HS 05/17/14 [History] Metoprolol Tartrate [Lopressor] 37.5 mg PO BID 05/17/14 [History] Rosuvastatin [Crestor] 10 mg PO HS 05/17/14 [History] Ezetimibe [Zetia] 10 mg PO HS 08/15/21 [History] Multivitamins, Thera [Multivitamin (formulary)] 1 tab PO HS 08/15/21 [History] Aspirin 81 mg PO DAILY tab 08/16/21 [Rx] Clopidogrel [Plavix] 75 mg PO DAILY tab 08/16/21 [Rx] Follow up Appointment(s)/Referral(s): Keaton Faustin MD [STAFF PHYSICIAN] - 1-2 days Adeel De Leon MD [Primary Care Provider] - 1-2 days
--- NOTE | 2021-08-16 14:39 | ECHOF ---
Referral Reason:Thrombus MEASUREMENTS -------- HEIGHT: 177.8 cm WEIGHT: 87.1 kg BP: 158/80 RVIDd: 3.0 cm (< 3.3) IVSd: 1.0 cm (0.6 - 1.1) LVIDd: 4.4 cm (3.9 - 5.3) LVPWd: 1.1 cm (0.6 - 1.1) IVSs: 1.4 cm LVIDs: 2.8 cm LVPWs: 1.4 cm LA Diam: 3.9 cm (2.7 - 3.8) LAESV Index (A-L): 29.32 ml/m Ao Diam: 3.2 cm (2.0 - 3.7) AV Cusp: 2.3 cm (1.5 - 2.6) MV EXCURSION: 20.868 mm (> 18.000) MV EF SLOPE: 167 mm/s (70 - 150) EPSS: 0.3 cm MV E Urban: 0.91 m/s MV DecT: 185 ms MV A Urban: 0.43 m/s MV E/A Ratio: 2.14 RAP: 5.00 mmHg RVSP: 32.76 mmHg FINDINGS -------- Resting bradycardia (HR<60bpm). This was a technically good study. The left ventricular size is normal. There is borderline concentric left ventricular hypertrophy. Overall left ventricular systolic function is normal with, an EF between 55 - 60 %. The right ventricle is normal in size and function. LA is midly dilated 29-33ml/m2. The right atrium is normal in size. Contrast study was performed with 2 iv injections of 8 ccs of agitated normal saline, at rest, and wi th cough. Negative saline bubble study, no shunt noted The aortic valve is trileaflet, and appears structurally normal. No aortic stenosis or regurgitation. Mild mitral regurgitation is present. Mild tricuspid regurgitation present. Right ventricular systolic pressure is normal at < 35 mmHg. Trace/mild (physiologic) pulmonic regurgitation. The aortic root, ascending aorta and aortic arch are normal. Normal inferior vena cava with normal inspiratory collapse consistent with estimated right atrial pre ssure of 5 mmHg. There is no pericardial effusion. CONCLUSIONS -------- 1. The left ventricular size is normal. 2. There is borderline concentric left ventricular hypertrophy. 3. Overall left ventricular systolic function is normal with, an EF between 55 - 60 %. 4. LA is midly dilated 29-33ml/m2. 5. Contrast study was performed with 2 iv injections of 8 ccs of agitated normal saline, at rest, and with cough. 6. Negative saline bubble study, no shunt noted 7. The aortic valve is trileaflet, and appears structurally normal. No aortic stenosis or regurgitati on. 8. Mild mitral regurgitation is present. 9. Mild tricuspid regurgitation present. 10. Trace/mild (physiologic) pulmonic regurgitation. 11. There is no pericardial effusion. POLICE SERGEANT: Amber Landry RDCS
== END 2021-08-16 13:32 | disposition home or self-care (01) ==
LOC: EC 10:12 → 6NMEDSUR 12:05
PROVIDERS: ADMIT Internal Medicine; ATTEND Internal Medicine
DX: H53.8 Other visual disturbances (principal); R20.0 Anesthesia of skin; I10 Essential (primary) hypertension; E78.5 Hyperlipidemia, unspecified; E66.9 Obesity, unspecified; Z68.27 Body mass index [BMI] 27.0-27.9, adult; R00.1 Bradycardia, unspecified; I47.1 Supraventricular tachycardia; I08.1 Rheumatic disorders of both mitral and tricuspid valves; Z20.822 Contact with and (suspected) exposure to COVID-19; Z86.73 Personal history of transient ischemic attack (TIA), and cerebral infarction without residual deficits; Z87.442 Personal history of urinary calculi; Z79.899 Other long term (current) drug therapy; Z80.42 Family history of malignant neoplasm of prostate; Z83.79 Family history of other diseases of the digestive system
CPT/HCPCS: 96372 ×2; 99285; 36415; 93005; 93306; 97161; 80061; 80053; 84443; 84484; 85025; 85610; 85730; 83036; 87635; 71046; 70496; 70450; 70498; 70551; G0378 ×2; Q9967; J1644 ×2

== ENCOUNTER 2021-08-22 10:59 | Day surgery (SDC) | payer BC ==
[2021-08-20 11:00] VITALS: BMI 27.5
[2021-08-22 11:24] VITALS: TEMP 97.8
[2021-08-22] MEDS ORDERED: SODIUM CHLORIDE 0.9% 500 ML 500 ML IV ONE (11:27)
[2021-08-22] MEDS: BENZOCAINE SPRAY 1 CAN MUCOUS MEM ONE ×2 (12:20→12:40)
[2021-08-22] MEDS ORDERED: MIDAZOLAM 2 MG/2 ML VIAL IVP ONE ×2 (12:40→12:43)
[2021-08-22] MEDS ORDERED: fentaNYL (PF) 50 MCG/ML 5 ML AMP IVP ONE (12:40)
[2021-08-22 13:00] VITALS: RESP 16
--- NOTE | 2021-08-22 13:58 | ECHOT ---
TRANSESOPHAGEAL ECHOCARDIOGRAM DATE OF SERVICE: 08/22/2021 PERFORMING PHYSICIAN: Chato Camp M.D. PROCEDURE PERFORMED: Transesophageal echocardiogram. INDICATION: Episode of TIA. COMPLICATIONS: None. LEVEL OF SEDATION: Moderate, with sedation length of 10 minutes. PROCEDURE DESCRIPTION: After obtaining informed consent, the patient was brought to the transesophageal echocardiogram room. Pulse oximetry and heart rate monitors were attached to the patient. Subsequently the transesophageal echocardiogram was advanced through the bite guard to the mid esophageal where 2D echocardiogram images as well as color Doppler images as well as pulse and continuous-wave Doppler images were obtained from multiple angles. The procedure was completed without any complication. FINDING: The left ventricular dimension and systolic function appeared to be within normal limits. The right ventricular dimension and systolic function appeared to be within normal limits as well. The right atrium and left atrium appeared to be within normal limits. The mitral valve appeared to be normal without stenosis with mild insufficiency. The aortic valve appeared to be a trileaflet valve without stenosis or regurgitation. The left atrial appendage appeared to be free from any thrombus. The interatrial septum appeared to be intact. CONCLUSION: 1. No evidence of cardiac source of embolization. 2. Intact interatrial septum without any evidence of shunt. 3. Normal left atrial appendage without any evidence of thrombus. 4. Normal left ventricular dimension and systolic function. 5. Normal intracardiac valves. 6. No evidence of pericardial effusion. MMODL / IJN: [id number] /
[2021-08-22 15:47] VITALS: PULSE 56
[2021-08-22 15:50] VITALS: BP 107/61
== END 2021-08-22 14:40 | disposition home or self-care (01) ==
LOC: CATHCVL 10:59
PROVIDERS: ATTEND Internal Medicine Interventional Cardiology
DX: I67.9 Cerebrovascular disease, unspecified (principal); G45.9 Transient cerebral ischemic attack, unspecified; I10 Essential (primary) hypertension; E78.5 Hyperlipidemia, unspecified; I47.1 Supraventricular tachycardia; I65.23 Occlusion and stenosis of bilateral carotid arteries; I35.0 Nonrheumatic aortic (valve) stenosis; I34.0 Nonrheumatic mitral (valve) insufficiency; I07.1 Rheumatic tricuspid insufficiency; Z20.822 Contact with and (suspected) exposure to COVID-19
CPT/HCPCS: 93312; 93325; 87635; J2250; J3010

== ENCOUNTER → 2021-10-03 | Outpatient (CLI) | payer BC ==
[2021-10-03 11:10] LABS: HGB 16.5 g/dL (13.0-17.0); MCH 32.1 pg (27.0-32.0); MCHC 33.7 g/dL (32.0-37.0); MCV 95.3 fL (80.0-97.0); Platelet Count 226 X 10*3/uL (140-440); RBC 5.14 X 10*6/uL (4.40-5.60); RDW 12.5 % (11.5-14.5); WBC 5.94 X 10*3/uL (4.50-10.00)
[2021-10-03 16:00] LABS: African American GFR (CKD) 89.6 (60.0-200.0); Anion Gap 10.9 mmol/L (10.00-18.00); Blood Urea Nitrogen 17.7 mg/dL (9.0-27.0); Non-African American GFR(CKD) 77.3 (60.0-200.0); Potassium 5.1 mmol/L (3.5-5.5)
== END | disposition home or self-care (01) ==
LOC: LABPAT 08:05
PROVIDERS: ATTEND Internal Medicine Clinical Cardiac Electrophysiology
DX: Z01.812 Encounter for preprocedural laboratory examination (principal); Z20.822 Contact with and (suspected) exposure to COVID-19; G45.9 Transient cerebral ischemic attack, unspecified
CPT/HCPCS: 80051; 82565; 84520; 85027; 36415; U0003; C9803

== ENCOUNTER 2021-10-06 08:52 | Day surgery (SDC) | payer BC ==
[2021-10-01 15:50] VITALS: BMI 27.6
[~2021-10-06 08:52] MED LIST: SODIUM CHLORIDE 0.9% 1,000 ML IV SCH
[2021-10-06 10:11] VITALS: RESP 16; TEMP 97.8
[2021-10-06] MEDS ORDERED: fentaNYL (PF) 50 MCG/ML 2 ML AMP ONE (12:32)
[2021-10-06] MEDS ORDERED: LIDOCAINE 1% INJ 10MG/ML (20 ML MDV) ONE (12:34)
[2021-10-06] MEDS ORDERED: MIDAZOLAM 2 MG/2 ML VIAL IV ONE (12:48)
[2021-10-06] MEDS ORDERED: LIDOCAINE 1% INJ 10MG/ML (20 ML MDV) SQ ONE ×2 (12:51)
--- NOTE | 2021-10-06 13:24 | P.EPPROC ---
- EP Procedure Note Electrophysiology Procedure Note: Loop monitor implant Primary physicians: Dr. De Leon Timekeeper Supervisor: Dr. Camp Indication: Cryptogenic stroke at age 51 and then again at age 61, history of sustained palpitations 10 years back/SVT, recurrent palpitations Patient was brought to the EP lab in a fasting state. Written informed consent was obtained prior to the procedure. The left pectoral area was prepped and draped per protocol. Intravenous antibiotic was administered preoperatively. A subcutaneous Loop monitor was implanted successfully and the wound was closed per protocol. The device was programmed to detect significant davis- arrhythmic and tachy-arrhythmic events, per protocol. Device and programming details: Programmed to detect A. fib and SVT Patient underwent EP procedure under conscious sedation/moderate sedation, monitoring of the level of consciousness and physiologic parameters including but not limited to vital signs and oxygenation. Patient tolerated the procedure well without any acute complications. Start time: 1241 Stop time: 1251 Coagulation profile including beta-2 microglobulin, cardiolipin antibodies and lupus anticoagulant sent
--- NOTE | 2021-10-06 13:27 | P.PRLE ---
RE: Yoshi Holm Dear Adeel Mr. Holm underwent implantation of a loop monitor for evaluation cryptogenic stroke I have also sent for a coagulation profile labs including cardiolipin antibodies, beta-2 microglobulin and lupus anti-coag He may benefit from a hematologic assessment for evaluation cryptogenic stroke especially since he has no other major risk factors His blood pressure is well controlled Does have a history of SVT almost 10 years back but continued to have episodes of palpitations Thank you for entrusting me with the care of the patient Warm regards Sincerely Shine Merlos
[2021-10-06 17:58] VITALS: BP 133/85; PULSE 58
[2021-10-06 20:30] LABS: Cardiolipin Ab IgG Interp Positive (NEGATIVE); Cardiolipin Ab IgM Interp NEGATIVE (NEGATIVE); Cardiolipin IgA Antibody <2.0 U/mL; Cardiolipin IgM Antibody <1.5 U/mL
[2021-10-07 12:08] LABS: APTT 41 Sec(s) (<43); Dilute Russell Viper Venom 40 Sec(s) (<44)
== END 2021-10-06 14:11 | disposition home or self-care (01) ==
LOC: CATHEP 08:52
PROVIDERS: ATTEND Internal Medicine Clinical Cardiac Electrophysiology
DX: R55 Syncope and collapse (principal); I47.1 Supraventricular tachycardia; I10 Essential (primary) hypertension; E78.5 Hyperlipidemia, unspecified; I08.3 Combined rheumatic disorders of mitral, aortic and tricuspid valves; I49.1 Atrial premature depolarization; I65.23 Occlusion and stenosis of bilateral carotid arteries; Z79.899 Other long term (current) drug therapy; Z79.82 Long term (current) use of aspirin
CPT/HCPCS: 33285; 85730; 85613; 82232; 86147; C1764; J2250; J0690; J2001

== ENCOUNTER → 2024-06-30 | Outpatient (CLI) | payer OTHER ==
--- NOTE | 2024-07-01 08:04 | MR ---
EXAMINATION TYPE: MR Prostate wo/w con DATE OF EXAM: 06/30/2024 8:00 AM COMPARISON: None. CLINICAL INDICATION: Male, 63 years old with history of R97.20 ELEVATED PSA; Elevated PSA TECHNIQUE: Multi-planar, multi-sequence imaging of the pelvis is performed prior to and following the uncomplicated administration of bolus intravenous gadolinium. CONTRAST: 9 Gadobutrol Interpretive Criteria: PI-RADS v2.1 SERUM PSA: 02/2022=3.4, 04/2024=5.3 SURGICAL PATHOLOGY: No data available. FINDINGS: Prostatic dimensions: 6.2 x 7.5 x 5.4 cm. Ellipsoid Volume:131.48 (PSA density=0.04 ng/mL/mL) CENTRAL GLAND (Central and Transition Zones/CZ+TZ): Multiple bilateral, heterogenous appearing hypertrophic stromal nodules, without suspicious lesion. M edian lobe hypertrophy with protrusion into the base of the bladder. (PI-RADS 2) PERIPHERAL ZONE (PZ): Bilateral linear, indistinct wedgelike areas of low ADC, and low T2 signal, No evidence of masslike a bnormality, or localized perfusional hypervascularity, to further suggest a focus of clinically signi ficant prostate cancer. (PI-RADS 2) SEMINAL VESICLES (SV): Symmetric and unremarkable. PERIPROSTATIC TISSUES: Unremarkable. LYMPH NODES: No enlarged pelvic lymph node. REMAINING PELVIS: Bladder wall is within normal limits given distention. No abnormal free or organized intrapelvic fluid collection. No pathologic bowel dilation or mural thickening. No hernia visualized OSSEOUS STRUCTURES: No suspicious osseous abnormality. IMPRESSION: 1. No specific features for high-risk prostate cancer. Maximum PI-RADS score: 2. 2. Substantial BPH, estimated gland volume 131.48 mL. 3. No suspicious osseous lesion. No lymphadenopathy. No evidence of prostate adenocarcinoma involving the periprostatic tissues. [facility], Workstation: [id number], 07/01/2024 8:01 AM
== END | disposition home or self-care (01) ==
LOC: RADMRIMAIN 05:58
PROVIDERS: ATTEND Urology
CPT/HCPCS: 72197